=== PATIENT | female | born 1940 | race Caucasian/White ===

== ENCOUNTER 2024-10-25 15:17 | Emergency (ER) | payer MEDICARE, SELFPAY ==
[2024-10-25 15:22] VITALS: BP 171/80; PULSE 71; RESP 18; TEMP 36.7; O2SAT 90; BMI 31.5
--- NOTE | 2024-10-25 15:27 | XR_ITS ---
WS: [id number] Right wrist, 3 views, 10/25/2024 Clinical Data: injury Comparison: None. Findings: No fractures or dislocations are seen. The carpal bones are intact. There is no soft tissue swelling. The distal radius and ulna are not remarkable. There is osteoarthritis between the scaphoid and the trapezium with sclerosis and narrowing.. XR/XR wrist RT min 3V* [id number] Impression: Osteoarthritis of the distal right scaphoid.
--- NOTE | 2024-10-25 15:38 | W.ED.EXTPRO ---
HPI - Extremity Problem General: Chief complaint: Extremity Injury, Upper Stated complaint: rt wrist Time Seen by Provider: 10/25/24 15:34 Source: patient Mode of arrival: ambulatory Limitations: no limitations History of Present Illness: 84-year-old female states she had felt a sudden pop in her right wrist earlier today states since then she been having severe pain in that right wrist. States very painful to touch and any movement. She has no redness denies any fevers denies any other pain elsewhere. Associated symptoms: Deny chest pain, fever(s) or rash Related Data Home Medications Medication Instructions Recorded Confirmed albuterol sulfate 90 mcg/actuation inhalation 05/18/24 05/18/24 aerosol inhaler atorvastatin 20 mg tablet mg PO 05/18/24 05/18/24 blood sugar diagnostic (Accu-Chek #10 ea 05/18/24 05/18/24 Guide test strips) blood-glucose meter (Accu-Chek #1 ea 05/18/24 05/18/24 Guide Glucose Meter) dicyclomine 10 mg capsule mg PO 05/18/24 05/18/24 diltiazem HCl 120 mg capsule,24 mg PO 05/18/24 05/18/24 hr,extended release enalapril maleate 5 mg tablet mg PO 05/18/24 05/18/24 escitalopram oxalate 10 mg tablet mg PO 05/18/24 05/18/24 esomeprazole magnesium 40 mg mg PO 05/18/24 05/18/24 capsule,delayed release flecainide 50 mg tablet mg PO 05/18/24 05/18/24 fluticasone fur. 100 mcg-umeclid inhalation 05/18/24 05/18/24 62.5 mcg-vilant 25 mcg inhalat.powder (Trelegy Ellipta) hydrocodone 10 mg-acetaminophen tab PO 05/18/24 05/18/24 325 mg tablet lancets (Accu-Chek Softclix #100 ea 05/18/24 05/18/24 Lancets) mirabegron 50 mg tablet,extended mg PO 05/18/24 05/18/24 release 24 hr (Myrbetriq) montelukast 10 mg tablet mg PO 05/18/24 05/18/24 primidone 250 mg tablet mg PO 05/18/24 05/18/24 sitagliptin phosphate 25 mg tablet mg PO 05/18/24 05/18/24 (Januvia) solifenacin 10 mg tablet mg PO 05/18/24 05/18/24 venlafaxine 150 mg mg PO 05/18/24 05/18/24 capsule,extended release 24 hr Previous Rx's Medication Instructions Recorded doxycycline hyclate 100 mg tablet 100 mg PO BID 7 days #14 tabs 05/18/24 prednisone 20 mg tablet 40 mg (2 x 20 mg) PO DAILY 5 days 05/18/24 #10 tabs hydrocodone 5 mg-acetaminophen 325 1 tab PO Q6H PRN pain #14 tabs 10/25/24 mg tablet Allergies Allergy/AdvReac Type Severity Reaction Status Date / Time adhesive tape Allergy ALGY-Redness Verified 10/25/24 15:22 of Skin Sulfa (Sulfonamide Allergy ALGY-Swell Verified 10/25/24 15:22 Antibiotics) Lip/Tongue/Throat trazodone Allergy Unknown Verified 10/25/24 15:22 antihismine Allergy ALGY-Swell Uncoded 05/18/24 16:04 Lip/Tongue/Throat Review of Systems Const: Denies: fever(s), chills, body aches or change in appetite ENMT: Denies: throat pain or dental pain Card: Denies: chest pain Resp: Denies: dyspnea GI: Denies: abdominal pain, nausea, vomiting or diarrhea Musc: Reports: extremity pain; Denies: neck pain or back pain Skin/Breast: Denies: rash Neuro: Denies: headache(s) PFSH ED PFSH: Social History Smoking and tobacco/nicotine status: former use of tobacco/nicotine Physical Exam Const: COMMON NORMALS: no acute distress, patient oriented x3 and healthy appearing HENMT: COMMON NORMALS: normocephalic and atraumatic HEAD & SCALP: normocephalic and atraumatic Eye: COMMON NORMALS: conjunctivae normal CONJUNCTIVA: Yes conjunctivae normal Neck/C-Spine: COMMON NORMALS: full ROM and supple Chest: COMMONS NORMALS: normal inspection of the chest Resp: COMMON NORMALS: normal respiratory effort Cardio: COMMON NORMALS: regular rate, regular rhythm and No murmurs present (Cardio) RATE: regular rate RHYTHM: regular rhythm Extremity: COMMON NORMALS: full ROM NARRATIVE EXTREMITY EXAM: Tenderness to right wrist no obvious deformity no warmth to touch no redness Neuro: COMMON NORMALS: patient oriented x3, moves all extremities and no focal motor deficits Psych: COMMON NORMALS: mental status grossly normal, Normal thought process present and cooperative THOUGHT PROCESS: Normal thought process present Skin: COMMON NORMALS: no rashes or lesions noted and no wounds GENERAL SKIN EXAM: no rashes or lesions noted Course Vital Signs: Vital signs: Vital Signs Temperature 98.0 F 10/25/24 15:22 Pulse Rate 71 10/25/24 15:22 Respiratory Rate 18 10/25/24 15:22 Blood Pressure 171/80 10/25/24 15:22 Pulse Oximetry 90 10/25/24 15:22 MDM - Extremity (Nontraumatic) Medical Decision Making Patient presents with wrist pain x-ray shows arthritis no obvious fracture did place her in an Mark wrap we will get her follow-up with orthopedics she is return if worsening she understands agrees to plan Medical Records I reviewed the patient's medical records. Lab Data Radiology Impressions Wrist X-Ray 10/25/24 15:27 Impression: Osteoarthritis of the distal right scaphoid. All radiology interpretation(s) finalized by discharge Discharge Plan Discharge Patient Disposition: Home Clinical Impression: Wrist pain, right Condition: Stable Prescriptions: New hydrocodone-acetaminophen 5-325 mg tablet 1 tab PO Q6H PRN (Reason: pain) Qty: 14 0RF No Action Trelegy Ellipta 100-62.5-25 mcg blister with device inhalation mirabegron [Myrbetriq] 50 mg tablet extended release 24 hr PO escitalopram oxalate 10 mg tablet PO albuterol sulfate 90 mcg/actuation HFA aerosol inhaler inhalation hydrocodone-acetaminophen 10-325 mg tablet PO dicyclomine 10 mg capsule PO atorvastatin 20 mg tablet PO Januvia 25 mg tablet PO solifenacin 10 mg tablet PO montelukast 10 mg tablet PO flecainide 50 mg tablet PO esomeprazole magnesium 40 mg capsule,delayed release(DR/EC) PO primidone 250 mg tablet PO venlafaxine 150 mg capsule,extended release 24hr PO enalapril maleate 5 mg tablet PO (DME) lancets [Accu-Chek Softclix Lancets] Misc See Rx Instructions .ROUTE .MEDSUPPLY Qty: 100 Rx Instructions: As directed (DME) Accu-Chek Guide test strips Strip See Rx Instructions .ROUTE .MEDSUPPLY Qty: 10 Rx Instructions: As directed (DME) blood-glucose meter [Accu-Chek Guide Glucose Meter] Misc See Rx Instructions .ROUTE .MEDSUPPLY Qty: 1 Rx Instructions: As directed diltiazem HCl 120 mg capsule,extended release 24 hr PO prednisone 20 mg tablet 40 mg PO DAILY 5 Days Qty: 10 0RF doxycycline hyclate 100 mg tablet 100 mg PO BID 7 Days Qty: 14 0RF Discharge Orders: Discharge ED (Routine); Ordered 10/25/24 Ordered By: Krish Darling Referrals: Eamon Awad DO [Physician] - 1-3 days Aline Javier FNP [Primary Care Provider] - Discharge Diet: Advance as tolerated Discharge Activity: Resume usual activity Patient Instructions: Wrist Injury (ED), Arthralgia (ED) Coding Level of Care Code ED [employer] for Christie Dumont
[2024-10-25] MEDS: HYDROcodone-acetaminophen 5-325 mg Tablet 1 TAB PO (15:42)
--- NOTE | 2024-10-25 15:47 | PC.NURSE ---
Per orders from Dr Darling, acewrap applied to the right wrist.
[2024-10-25 15:58] VITALS: BP 132/71; PULSE 63; O2SAT 95
--- NOTE | 2024-10-26 07:58 | DCPLANNER ---
Message sent to Ortho
== END 2024-10-25 15:59 | disposition home or self-care (01) ==
PROVIDERS: Emergency Provider Emergency Medicine; PCP Nurse Practitioner Family
DX: M25.531 Pain in right wrist (principal); Z87.891 Personal history of nicotine dependence
CPT/HCPCS: 73110; 99283

== ENCOUNTER → 2024-11-01 12:45 | Outpatient (BNVA) | payer MEDICARE, SELFPAY | PROVIDERS: PCP Nurse Practitioner Family; Referring Provider Nurse Practitioner Family; Visit Provider Internal Medicine Cardiovascular Disease | DX: R07.9 Chest pain, unspecified (principal); Z95.0 Presence of cardiac pacemaker; R94.31 Abnormal electrocardiogram [ECG] [EKG]; J44.9 Chronic obstructive pulmonary disease, unspecified; E78.5 Hyperlipidemia, unspecified; E11.9 Type 2 diabetes mellitus without complications; Z79.4 Long term (current) use of insulin; I10 Essential (primary) hypertension; Z87.891 Personal history of nicotine dependence | CPT/HCPCS: 93005; 99204 ==

== ENCOUNTER 2025-01-13 13:58 | Outpatient (CLI) | payer MEDICARE, SELFPAY ==
[2025-01-13 15:00] LABS: Anion Gap 13.7 (5-19); Blood Urea Nitrogen 15 mg/dL (8-23); Carbon Dioxide 28 mmol/L (22-29); Chloride 102 mmol/L (98-107); Glucose 100 mg/dL (65-115); NT Pro B Type Natriuretic Pept 200 pg/mL (0-450); Osmolality Calculated 291 mOsm/kg (285-295); Potassium 3.7 mmol/L (3.5-5.1); Sodium 140 mmol/L (136-145)
== END 2025-01-13 13:59 | disposition home or self-care (01) ==
LOC: LAB 13:59
PROVIDERS: PCP Nurse Practitioner Family; Visit Provider Nurse Practitioner Family
DX: R06.02 Shortness of breath (principal)
CPT/HCPCS: 80048; 83880

== ENCOUNTER → 2025-04-05 10:36 | Outpatient (BNVA) | payer MEDICARE, SELFPAY | PROVIDERS: PCP Nurse Practitioner Family; Visit Provider Internal Medicine Cardiovascular Disease | DX: Z45.018 Encounter for adjustment and management of other part of cardiac pacemaker (principal) | CPT/HCPCS: 93296 ==

== ENCOUNTER 2025-04-15 19:37 | Emergency (ER) | payer MEDICARE, SELFPAY ==
[2025-04-15 19:42] VITALS: BP 156/69; PULSE 60; RESP 16; TEMP 36.7; O2SAT 98; BMI 31.8
--- NOTE | 2025-04-15 20:06 | XRR_ITS ---
PROCEDURE INFORMATION: Exam: XR Chest Exam date and time: 04/15/2025 8:18 PM Age: 85 years old Clinical indication: Chest pressure; C/O chest pain TECHNIQUE: Imaging protocol: Radiologic exam of the chest. Views: 1 view. COMPARISON: No relevant prior studies available. FINDINGS: Tubes, catheters and devices: Left -sided pacemaker. Lungs: Prominent COPD in the upper lung quesada, [id number]-right. Pleural spaces: Unremarkable. No pleural effusion. No pneumothorax. Heart/Mediastinum: Unremarkable. No cardiomegaly. Vasculature: Calcification of the thoracic aorta and/or great vessels consistent with atherosclerotic vessel disease. Bones/joints: Unremarkable. XR/XR chest 1V portable [id number] IMPRESSION: 1. Left -sided pacemaker. 2. Prominent COPD in the upper lung quesada, [id number]-right.
--- NOTE | 2025-04-15 20:06 | CTR_ITS ---
PROCEDURE INFORMATION: Exam: CT Maxillofacial Without Contrast, Sinus Exam date and time: 04/15/2025 8:31 PM Age: 85 years old Clinical indication: Face pain; C/O facial sinus pain TECHNIQUE: Imaging protocol: CT Maxillofacial without contrast. Focus on the sinuses. Radiation optimization: All CT scans at this facility use at least one of these dose optimization techniques: automated exposure control; mA and/or kV adjustment per patient size (includes targeted exams where dose is matched to clinical indication); or iterative reconstruction. COMPARISON: CT head wo con* [id number] 04/15/2025 8:28 PM RADIATION DOSE METRICS: Total DLP (mGy-cm): 364.11 FINDINGS: Frontal sinuses: No air-fluid levels. Ethmoid sinuses: No air-fluid levels. Sphenoid sinuses: No air-fluid levels. Maxillary sinuses: No air-fluid levels. Ostiomeatal units are patent. Nasal cavity: Unremarkable. Orbital cavities: Orbits are normal. Globes are unremarkable. Bones: Mild right TMJ primary osteoarthritis. Soft tissues: Unremarkable. CT/CT sinus wo con* [id number] IMPRESSION: Unremarkable sinuses.
--- NOTE | 2025-04-15 20:06 | CTR_ITS ---
PROCEDURE INFORMATION: Exam: CT Head Without Contrast Exam date and time: 04/15/2025 8:28 PM Age: 85 years old Clinical indication: Pain; Headache; C/O OCHOA with hypertension TECHNIQUE: Imaging protocol: Computed tomography of the head without contrast. Radiation optimization: All CT scans at this facility use at least one of these dose optimization techniques: automated exposure control; mA and/or kV adjustment per patient size (includes targeted exams where dose is matched to clinical indication); or iterative reconstruction. COMPARISON: No relevant prior studies available. RADIATION DOSE METRICS: Total DLP (mGy-cm): 275 FINDINGS: Brain: Mild to moderate cerebral atrophy and ischemic leukoencephalopathy. Cerebral ventricles: No ventriculomegaly. Paranasal sinuses: Visualized sinuses are unremarkable. No fluid levels. Mastoid air cells: Visualized mastoid air cells are well aerated. Bones: Unremarkable. No acute fracture. Soft tissues: Unremarkable. Other findings: Moderate calcified intracranial atherosclerotic vessel disease. CT/CT head wo con* [id number] IMPRESSION: No acute intracranial abnormality.
--- NOTE | 2025-04-15 20:12 | W.ED.GENADLT ---
HPI - General Adult General: Chief complaint: General Medical Stated complaint: BP High Time Seen by Provider: 04/15/25 19:50 History of Present Illness: Patient presents with a severe headache and elevated BP. Headache is described as hurting behind the eyes. The patient has a history of headaches associated with elevated BP, as noted by a previous provider. She has been taking [id number] pseudoephedrine for sinus symptoms for a few days, which has helped somewhat, but symptoms persist. No fever reported. BP remains high despite an increase in antihypertensive medication (now on 10 mg twice daily, per heart doctor Xavier). There is uncertainty about whether the patient is still on lisinopril, which was previously prescribed for a heart valve issue. The patient reports dizziness for the past two days. No chest pain or shortness of breath currently, though she has a history of COPD and asthma and did not take her inhaler (Trelegy) today. Family history is notable for strokes in her mother and grandmother. The patient had a stroke 30-40 years ago attributed to low BP. No reported weakness, vision changes, or numbness. No recent chest pain or shortness of breath. Related Data Home Medications ?Medication ?Instructions ?Recorded ?Confirmed albuterol sulfate 90 mcg/actuation inhalation 05/18/24 05/18/24 aerosol inhaler atorvastatin 20 mg tablet mg PO 05/18/24 05/18/24 blood sugar diagnostic (Accu-Chek #10 ea 05/18/24 05/18/24 Guide test strips) blood-glucose meter (Accu-Chek #1 ea 05/18/24 05/18/24 Guide Glucose Meter) dicyclomine 10 mg capsule mg PO 05/18/24 05/18/24 diltiazem HCl 120 mg capsule,24 mg PO 05/18/24 05/18/24 hr,extended release escitalopram oxalate 10 mg tablet mg PO 05/18/24 05/18/24 esomeprazole magnesium 40 mg mg PO 05/18/24 05/18/24 capsule,delayed release flecainide 50 mg tablet mg PO 05/18/24 05/18/24 fluticasone fur. 100 mcg-umeclid inhalation 05/18/24 05/18/24 62.5 mcg-vilant 25 mcg inhalat.powder (Trelegy Ellipta) hydrocodone 10 mg-acetaminophen tab PO 05/18/24 05/18/24 325 mg tablet lancets (Accu-Chek Softclix #100 ea 05/18/24 05/18/24 Lancets) mirabegron 50 mg tablet,extended mg PO 05/18/24 05/18/24 release 24 hr (Myrbetriq) montelukast 10 mg tablet mg PO 05/18/24 05/18/24 primidone 250 mg tablet mg PO 05/18/24 05/18/24 sitagliptin phosphate 25 mg tablet mg PO 05/18/24 05/18/24 (Januvia) solifenacin 10 mg tablet mg PO 05/18/24 05/18/24 venlafaxine 150 mg mg PO 05/18/24 05/18/24 capsule,extended release 24 hr Previous Rx's ?Medication ?Instructions ?Recorded doxycycline hyclate 100 mg tablet 100 mg PO BID 7 days #14 tabs 05/18/24 prednisone 20 mg tablet 40 mg (2 x 20 mg) PO DAILY 5 days 05/18/24 #10 tabs hydrocodone 5 mg-acetaminophen 325 1 tab PO Q6H PRN pain #14 tabs 10/25/24 mg tablet furosemide 20 mg tablet (Lasix) 20 mg PO .PRN #30 tabs 01/03/25 enalapril maleate 10 mg tablet 10 mg PO ONCE #90 tabs 04/14/25 Allergies Allergy/AdvReac Type Severity Reaction Status Date / Time adhesive tape Allergy ALGY-Redness Verified 11/01/24 11:36 of Skin Sulfa (Sulfonamide Allergy ALGY-Swell Verified 11/01/24 11:36 Antibiotics) Lip/Tongue/Throat trazodone Allergy Unknown Verified 11/01/24 11:36 antihismine Allergy ALGY-Swell Uncoded 11/01/24 11:36 Lip/Tongue/Throat PFSH ED PFSH: Social History Smoking and tobacco/nicotine status: former use of tobacco/nicotine Physical Exam Const: COMMON NORMALS: no acute distress, patient oriented x3 and alert HENMT: COMMON NORMALS: normocephalic and atraumatic HEAD & SCALP: normocephalic and atraumatic OTHER: Mild tenderness with palpation of the bilateral maxillary sinuses. No nasal turbinate hypertrophy or occlusion. Eye: COMMON NORMALS: Equal, round and reactive pupils present, EOMs intact bilaterally and no scleral icterus PUPIL: Yes Equal, round and reactive pupils present Resp: COMMON NORMALS: normal respiratory effort and No retractions Cardio: COMMON NORMALS: regular rate, regular rhythm and No murmurs present (Cardio) RATE: regular rate RHYTHM: regular rhythm GI: COMMON NORMALS: Normal to inspection, nondistended, normoactive bowel sounds present, Soft to palpation and non-tender PALPATION: Yes Soft to palpation Neuro: COMMON NORMALS: patient oriented x3 SENSORIUM/ORIENTATION: Yes alert Skin: COMMON NORMALS: no rashes or lesions noted GENERAL SKIN EXAM: no rashes or lesions noted Course Vital Signs: Vital signs: Vital Signs Temperature 98.1 F 04/15/25 19:42 Pulse Rate 62 04/16/25 00:02 Respiratory Rate 17 04/16/25 00:02 Blood Pressure 147/78 04/16/25 00:02 Pulse Oximetry 93 04/16/25 00:02 Oxygen Delivery Me thod Room Air 04/15/25 19:[address] [facility] - General Adult Medical Decision Making In summary, patient is a 85-year-old female seen for headache and accelerated hypertension. Workup is largely noncontributory. I do not suspect intracranial bleed, meningitis, or any other emergent process warranting further workup. She will be discharged in stable and improved condition. Vital signs of stabilized with pain control. Family and patient show good understanding and agrees with plan Lab Data 04/15/25 20:20 04/15/25 20:20 Radiology Impressions Chest X-Ray 04/15/25 20:06 IMPRESSION: 1. Left -sided pacemaker. 2. Prominent COPD in the upper lung quesada, [id number]-right. Head CT 04/15/25 20:06 IMPRESSION: No acute intracranial abnormality. Sinuses CT 04/15/25 20:06 IMPRESSION: Unremarkable sinuses. Abdomen/Pelvis CT 04/15/25 22:42 IMPRESSION: No acute findings. COMMENTS: Consistent with the [employer]'s Incidental Findings Committee white paper (J Am Alexander Radiol 2018): Any incidental renal lesion less than 1 cm or classified as too small to characterize, or any incidental cystic renal lesion characterized as simple-appearing, is likely benign. No follow-up imaging is recommended for these lesions per consensus recommendations based on imaging criteria. Laboratory Results WBC 6.33 10^3/uL (3.29-11.43) 04/15/25 20:20 RBC 5.00 10^6/uL (3.85-5.65) 04/15/25 20:20 Hgb 14.70 g/dL (11.27-16.99) 04/15/25 20:20 Hct 44.0 % (36-47) 04/15/25 20:20 MCV 88.0 fl (85-98) 04/15/25 20:20 MCH 29.4 pg (27-33) 04/15/25 20:20 MCHC 33.4 g/dL (30-55) 04/15/25 20:20 RDW 12.4 % (12.1-15.1) 04/15/25 20:20 Plt Count 179 10^3/cmm (157-399) 04/15/25 20:20 MPV 10.1 fL (7.4-10.4) 04/15/25 20:20 Neut % (Auto) 54.8 % 04/15/25 20:20 Lymph % (Auto) 34.6 % 04/15/25 20:20 Winkler % (Auto) 7.3 % 04/15/25 20:20 Eos % (Auto) 2.1 % 04/15/25 20:20 Baso % (Auto) 0.9 % 04/15/25 20:20 Neut # (Auto) 3.47 10^3/uL (1.8-7.7) 04/15/25 20:20 Lymph # (Auto) 2.2 10^3/uL (0.8-4.8) 04/15/25 20:20 Winkler # (Auto) 0.5 10^3/uL (0.2-0.9) 04/15/25 20:20 Eos # (Auto) 0.1 10^3/uL (0.0-0.8) 04/15/25 20:20 Baso # (Auto) 0.1 10^3/uL (0.0-0.1) 04/15/25 20:20 Nucleated RBC % (auto) 0 % 04/15/25 20:20 Nucleated RBCs # 0.0 /100WBC 04/15/25 20:20 Sodium 140 mmol/L (136-145) 04/15/25 20:20 Potassium 4.0 mmol/L (3.5-5.1) 04/15/25 20:20 Chloride 103 mmol/L (98-107) 04/15/25 20:20 Carbon Dioxide 26 mmol/L (22-29) 04/15/25 20:20 Anion Gap 15.0 (5-19) 04/15/25 20:20 BUN 14 mg/dL (8-23) 04/15/25 20:20 Creatinine 1.2 mg/dL (0.5-0.9) H 04/15/25 20:20 GFR Calculation Not Reportable 04/15/25 20:20 Glucose 89 mg/dL (65-115) 04/15/25 20:20 Calculated Osmolality 290 mOsm/kg (285-295) 04/15/25 20:20 Calcium 9.2 mg/dL (8.5-10.5) 04/15/25 20:20 Total Bilirubin 0.2 mg/dL (0.15-1.2) 04/15/25 20:20 AST 19 U/L (0-32) 04/15/25 20:20 ALT 15 U/L (0-33) 04/15/25 20:20 Alkaline Phosphatase 96 U/L (35-105) 04/15/25 20:20 Troponin T Baseline 13 ng/L (0-10) H 04/15/25 20:20 Troponin T 120 Minute 11.89 ng/L (0-10) H 04/15/25 22:21 Delta Troponin T -1.11 ABS# (0-10) L 04/15/25 22:21 Total Protein 6.7 g/dL (6.6-8.7) 04/15/25 20:20 Albumin 4.3 g/dL (3.5-5.2) 04/15/25 20:20 Globulin 2.4 g/dL (1.3-4.6) 04/15/25 20:20 Urine Color Yellow (Yellow) 04/15/25 20:43 Urine Appearance Clear (CLEAR) 04/15/25 20:43 Urine pH 7.0 (5-7) 04/15/25 20:43 Ur Specific [place] 1.003 (1.005-1.030) L 04/15/25 20:43 Urine Protein Negative (Negative) 04/15/25 20:43 Urine Glucose (UA) Negative (Normal) 04/15/25 20:43 Urine Ketones Negative (Negative) 04/15/25 20:43 Urine Blood Negative (Negative) 04/15/25 20:43 Urine Nitrate Negative (Negative) 04/15/25 20:43 Urine Bilirubin Negative (Negative) 04/15/25 20:43 Urine Urobilinogen 0.2 mg/dL (Negative) 04/15/25 20:43 Ur Leukocyte Esterase Trace (Negative) A 04/15/25 20:43 Urine RBC 0-2 /hpf (0-2) 04/15/25 20:43 Urine WBC 0-5 /hpf (0-5) 04/15/25 20:43 Ur Squamous Epith Cells 0-5 /hpf (0-5) 04/15/25 20:43 Amorphous Sediment Not Reportable 04/15/25 20:43 Urine Bacteria None seen /hpf (NONE) 04/15/25 20:43 Hyaline Casts 0-4 /lpf H 04/15/25 20:43 All radiology interpretation(s) finalized by discharge EKG Data EKG 1: Interpretation: Time?1955?atrial paced rhythm, rate of 61, no ST segment elevation or depression, no T wave inversions, QTc = 417 Computer generated interpretation: Chest X-Ray 04/15/25 20:06 IMPRESSION: 1. Left -sided pacemaker. 2. Prominent COPD in the upper lung quesada, [id number]-right. Head CT 04/15/25 20:06 IMPRESSION: No acute intracranial abnormality. Sinuses CT 04/15/25 20:06 IMPRESSION: Unremarkable sinuses. Abdomen/Pelvis CT 04/15/25 22:42 IMPRESSION: No acute findings. COMMENTS: Consistent with the [employer]'s Incidental Findings Committee white paper (J Am Alexander Radiol 2018): Any incidental renal lesion less than 1 cm or classified as too small to characterize, or any incidental cystic renal lesion characterized as simple-appearing, is likely benign. No follow-up imaging is recommended for these lesions per consensus recommendations based on imaging criteria. Discharge Plan Discharge Patient Disposition: Home Clinical Impression: Headache, Accelerated hypertension Condition: Stable Prescriptions: No Action Trelegy Ellipta 100-62.5-25 mcg blister with device inhalation mirabegron [Myrbetriq] 50 mg tablet extended release 24 hr PO escitalopram oxalate 10 mg tablet PO albuterol sulfate 90 mcg/actuation HFA aerosol inhaler inhalation hydrocodone-acetaminophen 10-325 mg tablet PO dicyclomine 10 mg capsule PO atorvastatin 20 mg tablet PO Januvia 25 mg tablet PO solifenacin 10 mg tablet PO montelukast 10 mg tablet PO flecainide 50 mg tablet PO esomeprazole magnesium 40 mg capsule,delayed release(DR/EC) PO primidone 250 mg tablet PO venlafaxine 150 mg capsule,extended release 24hr PO (DME) lancets [Accu-Chek Softclix Lancets] Misc See Rx Instructions .ROUTE .MEDSUPPLY Qty: 100 Rx Instructions: As directed (DME) Accu-Chek Guide test strips Strip See Rx Instructions .ROUTE .MEDSUPPLY Qty: 10 Rx Instructions: As directed (DME) blood-glucose meter [Accu-Chek Guide Glucose Meter] Misc See Rx Instructions .ROUTE .MEDSUPPLY Qty: 1 Rx Instructions: As directed diltiazem HCl 120 mg capsule,extended release 24 hr PO prednisone 20 mg tablet 40 mg PO DAILY 5 Days Qty: 10 0RF doxycycline hyclate 100 mg tablet 100 mg PO BID 7 Days Qty: 14 0RF furosemide [Lasix] 20 mg tablet 20 mg PO .PRN Qty: 30 0RF enalapril maleate 10 mg tablet 10 mg PO ONCE Qty: 90 3RF hydrocodone-acetaminophen 5-325 mg tablet 1 tab PO Q6H PRN (Reason: pain) Qty: 14 0RF Discharge Orders: Discharge ED (Routine); Ordered 04/15/25 Ordered By: Jack Ybarra Referrals: Aline Javier FNP [Primary Care Provider] Discharge Diet: Usual diet Discharge Activity: Increase activity as tolerated Patient Instructions: Acute Headache (DC) Activity Restrictions/Additional Instructions: As we discussed, CT brain, EKG, labs are reassuring with no evidence of endorgan damage or stroke causing your blood pressure to rise. Once the headache pain was treated, blood pressure dropped appropriately. Is safe to follow-up with your primary care doctor and generally would and take your normal medications Print Language: Spanish Coding Level of Care Code ED Tie Layer for Chg Tim
[2025-04-15 20:26] LABS: Basophils # 0.1 10^3/uL (0.0-0.1); Basophils % 0.9 %; Eosinophils # 0.1 10^3/uL (0.0-0.8); Eosinophils % 2.1 %; Lymphocytes # 2.2 10^3/uL (0.8-4.8); Lymphocytes % 34.6 %; Mean Corpuscular HGB Conc 33.4 g/dL (30-55); Mean Corpuscular Hemoglobin 29.4 pg (27-33); Mean Platelet Volume 10.1 fL (7.4-10.4); Monocytes # 0.5 10^3/uL (0.2-0.9); Monocytes % 7.3 %; Neutrophils # 3.47 10^3/uL (1.8-7.7); Neutrophils % 54.8 %; Nucleated Red Blood Cells % 0 %; Platelet Count 179 10^3/cmm (157-399); Red Cell Distribution Width 12.4 % (12.1-15.1); White Blood Count 6.33 10^3/uL (3.29-11.43)
[2025-04-15 20:41] VITALS: BP 158/87; PULSE 69; RESP 16; O2SAT 95
[2025-04-15 20:44] LABS: Alanine Aminotransferase 15 U/L (0-33); Albumin Level 4.3 g/dL (3.5-5.2); Alkaline Phosphatase 96 U/L (35-105); Aspartate Amino Transferase 19 U/L (0-32); Blood Urea Nitrogen 14 mg/dL (8-23); Calcium 9.2 mg/dL (8.5-10.5); Carbon Dioxide 26 mmol/L (22-29); Chloride 103 mmol/L (98-107); Creatinine Clr Calc Pharmacy 33.4219; Globulin 2.4 g/dL (1.3-4.6); Glucose 89 mg/dL (65-115); Osmolality Calculated 290 mOsm/kg (285-295); Sodium 140 mmol/L (136-145); Total Bilirubin 0.2 mg/dL (0.15-1.2); Total Protein 6.7 g/dL (6.6-8.7); Troponin(5th) Baseline 13 ng/L (0-10)
[2025-04-15 20:52] LABS: Bilirubin Urine Negative (Negative); Blood Urine Negative (Negative); Glucose Urine UA Negative (Normal); Ketones Urine Negative (Negative); Leukocyte Esterase Urine Trace (Negative); Nitrate Urine Negative (Negative); Protein Urine Negative (Negative); Specific Gravity, Urine 1.003 (1.005-1.030); Urine Appearance Clear (CLEAR); Urine Color Yellow (Yellow); Urobilinogen Urine 0.2 mg/dL (Negative)
[2025-04-15 20:57] LABS: Bacteria Urine None Seen /hpf; Hyaline Casts Urine 0-4 /lpf; RBC Urine 0-2 /hpf (0-2); Squamous Epithelial Cell Urine 0-5 /hpf (0-5); WBC Urine 0-5 /hpf (0-5)
[2025-04-15 21:00] VITALS: BP 155/78; PULSE 51; RESP 16; O2SAT 94
[2025-04-15] MEDS: diphenhydrAMINE 50 mg/mL SDV 1mL 25 MG IVP (21:04)
[2025-04-15] MEDS: sodium chloride 0.9% 1,000 ML 999 ML IV (21:05)
[2025-04-15] MEDS: prochlorperazine 10 mg/2 mL Inj 5 MG IVP (21:05)
[2025-04-15 21:07] LABS: UA Slide Review UA Slide Review Perf
[2025-04-15 21:30] VITALS: BP 153/84; PULSE 69; RESP 16; O2SAT 94
[2025-04-15 22:00] VITALS: PULSE 63; RESP 16; O2SAT 93
[2025-04-15 22:30] VITALS: BP 136/76; PULSE 65; RESP 16; O2SAT 93
[2025-04-15 22:42] LABS: Troponin 5 2HR 11.89 ng/L (0-10)
--- NOTE | 2025-04-15 22:42 | CTR_ITS ---
PROCEDURE INFORMATION: Exam: CT Abdomen And Pelvis With Contrast Exam date and time: 04/15/2025 10:54 PM Age: 85 years old Clinical indication: Abdominal pain; Localized; Right lower quadrant (rlq); Prior surgery; Surgery date: 6+ months; Surgery type: Pacer; C/O periumbilical/rlq pain; Additional info: Midline abd and right inguinal hernia, pain TECHNIQUE: Imaging protocol: Computed tomography of the abdomen and pelvis with contrast. Radiation optimization: All CT scans at this facility use at least one of these dose optimization techniques: automated exposure control; mA and/or kV adjustment per patient size (includes targeted exams where dose is matched to clinical indication); or iterative reconstruction. Contrast material: OMNI 350; Contrast volume: 80 ml; Contrast route: INTRAVENOUS (IV); COMPARISON: CR (CHEST, ) 04/15/2025 8:18 PM RADIATION DOSE METRICS: Total DLP (mGy-cm): 708.53 FINDINGS: Lungs: Scarring and/or atelectasis in the inferior segment of the lingula. Liver: Normal. No mass. Gallbladder and biliary ducts: Normal. No calcified stones. No ductal dilation. Pancreas: Normal. No ductal dilation. Spleen: Normal. No splenomegaly. Adrenal glands: Normal. No mass. Kidneys and ureters: Right renal hypodensity measuring < 1.0 cm , too small to further characterize. Multiple left renal hypodensities with the largest measuring < 1.0 cm, too small to further characterize. One or more nonobstructing right renal calyceal stones. Stomach and bowel: Mild colonic diverticulosis. Appendix: No evidence of appendicitis. Intraperitoneal space: Unremarkable. No free air. No significant fluid collection. Vasculature: Calcification of the abdominal aorta and/or iliac arteries consistent with atherosclerotic vessel disease. Lymph nodes: Calcified right hilar nodes and/or mediastinal nodes and/or lung granulomas consistent with old granulomatous disease. Urinary bladder: Unremarkable as visualized. Reproductive: Unremarkable as visualized. Bones/joints: Moderate to severe multilevel spine degenerative changes including degenerative disc disease, spondylosis and facet degenerative changes. Soft tissues: Unremarkable. CT/CT abdomen pelvis w con* [id number] IMPRESSION: No acute findings. COMMENTS: Consistent with the [employer]'s Incidental Findings Committee white paper (J Am Alexander Radiol 2018): Any incidental renal lesion less than 1 cm or classified as too small to characterize, or any incidental cystic renal lesion characterized as simple-appearing, is likely benign. No follow-up imaging is recommended for these lesions per consensus recommendations based on imaging criteria.
[2025-04-15 22:53] LABS: Troponin 5 2HR Delta -1.11 ABS# (0-10)
[2025-04-15] MEDS: iohexol 350 mg/mL 500 mL Btl (per mL) IV (22:57)
[2025-04-16 00:02] VITALS: BP 147/78; PULSE 62; RESP 17; O2SAT 93
== END 2025-04-16 00:05 | disposition home or self-care (01) ==
PROVIDERS: Emergency Provider Student in an Organized Health Care Education/Training Program; PCP Nurse Practitioner Family
DX: R51.9 Headache, unspecified (principal); I10 Essential (primary) hypertension; Z87.891 Personal history of nicotine dependence
CPT/HCPCS: 36415; 70450; 70486; 71045; 74177; 80053; 81001; 84484; 85025; 96374; 96375; 99285; J0780; J1200; J7030

== ENCOUNTER → 2025-05-11 09:50 | Outpatient (BNVA) | payer MEDICARE, SELFPAY | PROVIDERS: PCP Nurse Practitioner Family; Visit Provider Nurse Practitioner Family | DX: I10 Essential (primary) hypertension (principal); J44.9 Chronic obstructive pulmonary disease, unspecified; E78.5 Hyperlipidemia, unspecified; E11.9 Type 2 diabetes mellitus without complications; Z79.4 Long term (current) use of insulin; Z95.0 Presence of cardiac pacemaker; Z87.891 Personal history of nicotine dependence | CPT/HCPCS: 99213 ==